=== PATIENT | female | born 2000 | race Hispanic/Latino ===

== ENCOUNTER 2020-07-15 06:07 | Day surgery (SDC) | payer BC ==
[2020-07-10 16:47] LABS: #Eosinphils 0.1 10x3/uL (0.0-0.5); #Monocytes 0.5 10x3/uL (0.0-1.1); %Basophils 0.5 % (0.0-2.0); %Eosinophils 1.3 % (0.0-6.0); %Lymphocytes 27.5 % (18.0-47.0); %Monocytes 6.3 % (0.0-10.0); Hemoglobin 13.7 g/dL (12.0-15.5); Mean Corpuscular Hemoglobin 30.2 pg (27.0-33.0); Mean Platelet Volume 9.5 fl (7.4-10.4); Platelet Count 302 10x3/uL (150-450); RBC Distribution Width 11.9 % (11.5-14.5); Red Blood Cell (RBC) Count 4.53 10x6/uL (3.90-5.03); White Blood Cell (WBC) Count 7.8 10x3/uL (3.5-10.5)
[2020-07-11 01:47] LABS: SARS-CoV-2 PCR by NAA Not Detected (NotDetected)
[2020-07-13 15:06] VITALS: BMI 28.7
[2020-07-15] MEDS ORDERED: CeleCOXIB 100 MG CAP ONE (06:23)
[2020-07-15] MEDS ORDERED: Famotidine/PF 20 mg/2ml Vial ONE (06:23)
[2020-07-15] MEDS ORDERED: Lidocaine 1% MPF 2 ML VIAL ONE (06:23)
[2020-07-15] MEDS ORDERED: Gabapentin 300 MG CAP ONE (06:23)
[2020-07-15] MEDS ORDERED: Bupivacaine PF 0.5% 30 ML VIAL ONE (06:49)
[2020-07-15] MEDS ORDERED: EPINEPHrine 1 MG/ML AMP ONE (06:50)
[2020-07-15] MEDS ORDERED: PROPOFOL 20 ML ONE (07:04)
[2020-07-15] MEDS ORDERED: Fentanyl 100 MCG/2 ML VIAL ONE ×2 (07:04→09:23)
[2020-07-15] MEDS ORDERED: Midazolam HCl 2 mg/2 ml Vial ONE (07:10)
[2020-07-15] MEDS ORDERED: Meperidine HCl/PF 25 MG/ML VIAL ONE (08:30)
[2020-07-15] MEDS ORDERED: Glycopyrrolate 0.2 MG/ML 5 ML SYRINGE ONE (08:33)
[2020-07-15] MEDS ORDERED: HYDROcodone/Acetaminophen 5/325 mg Tablet ONE (11:00)
== END 2020-07-15 11:35 | disposition home or self-care (01) ==
LOC: CSHSDC 06:07
PROVIDERS: ATTEND Obstetrics & Gynecology
PROC: 0U5F4ZZ Destruction of Cul-de-sac, Percutaneous Endoscopic Approach (ICD-10-PCS; principal; 2020-07-15)
DX: N80.3 Endometriosis of pelvic peritoneum (principal); Z79.899 Other long term (current) drug therapy; Z88.0 Allergy status to penicillin; Z20.822 Contact with and (suspected) exposure to COVID-19
CPT/HCPCS: 84702; 85025; 86850; 86900; 86901; 87635; 88305; J0171; J2175; J2250; J2704; J3010; S0020; S0028; U0003; U0005